=== PATIENT | male | born 1950 | race Caucasian/White ===

== ENCOUNTER 2017-09-07 14:20 | Outpatient (CLI) | payer MEDICARE ==
[~2017-09-07 14:20] MED LIST: CARV12.52 PO; PREG100C PO; SERT25TA PO; SIMV40TA5 PO; TEST1.25 TD
== END 2017-09-07 23:59 | disposition home or self-care (01) ==
LOC: WOU 14:20
PROVIDERS: ATTEND Surgery
DX: L02.212 Cutaneous abscess of back [any part, except buttock and flank] (principal); Z86.14 Personal history of Methicillin resistant Staphylococcus aureus infection; Z95.2 Presence of prosthetic heart valve; Z86.73 Personal history of transient ischemic attack (TIA), and cerebral infarction without residual deficits; Z79.899 Other long term (current) drug therapy; I10 Essential (primary) hypertension
CPT/HCPCS: 87070-TC; 87075-TC; A6209; A6402; G0463

== ENCOUNTER 2018-05-20 13:20 | Outpatient (CLI) | payer MEDICARE | END 2018-05-20 23:59 | disposition home or self-care (01) | LOC: WOU 13:20 | PROVIDERS: ATTEND Surgery | DX: T81.31XA Disruption of external operation (surgical) wound, not elsewhere classified, initial encounter (principal); L02.212 Cutaneous abscess of back [any part, except buttock and flank]; I25.10 Atherosclerotic heart disease of native coronary artery without angina pectoris; Z95.1 Presence of aortocoronary bypass graft; I10 Essential (primary) hypertension; E66.9 Obesity, unspecified; Z68.27 Body mass index [BMI] 27.0-27.9, adult | CPT/HCPCS: 11043; A6407 ==

== ENCOUNTER 2018-05-31 12:50 | Outpatient (CLI) | payer MEDICARE | END 2018-05-31 23:59 | disposition home health service (06) | LOC: WOU 12:50 | PROVIDERS: ATTEND Surgery | DX: T81.31XA Disruption of external operation (surgical) wound, not elsewhere classified, initial encounter (principal); L02.212 Cutaneous abscess of back [any part, except buttock and flank]; L90.5 Scar conditions and fibrosis of skin; I10 Essential (primary) hypertension; I25.10 Atherosclerotic heart disease of native coronary artery without angina pectoris; Z95.1 Presence of aortocoronary bypass graft; E66.9 Obesity, unspecified; E46 Unspecified protein-calorie malnutrition; Z68.27 Body mass index [BMI] 27.0-27.9, adult | CPT/HCPCS: 11043; 87070; 87075; A6402; A6407; J3490; A6209 ==

== ENCOUNTER 2018-06-07 12:45 | Outpatient (CLI) | payer MEDICARE | END 2018-06-07 23:59 | disposition home health service (06) | LOC: WOU 12:45 | PROVIDERS: ATTEND Surgery | DX: T81.31XA Disruption of external operation (surgical) wound, not elsewhere classified, initial encounter (principal); L02.212 Cutaneous abscess of back [any part, except buttock and flank]; L90.5 Scar conditions and fibrosis of skin; I10 Essential (primary) hypertension; I25.10 Atherosclerotic heart disease of native coronary artery without angina pectoris; E46 Unspecified protein-calorie malnutrition; E66.9 Obesity, unspecified; Z68.27 Body mass index [BMI] 27.0-27.9, adult; Z95.1 Presence of aortocoronary bypass graft | CPT/HCPCS: 11043; A6402; A6407 ==

== ENCOUNTER 2018-06-14 13:00 | Outpatient (CLI) | payer MEDICARE | END 2018-06-14 23:59 | disposition home or self-care (01) | LOC: WOU 13:00 | PROVIDERS: ATTEND Surgery | DX: T81.31XA Disruption of external operation (surgical) wound, not elsewhere classified, initial encounter (principal); L02.212 Cutaneous abscess of back [any part, except buttock and flank]; L90.5 Scar conditions and fibrosis of skin; I10 Essential (primary) hypertension; I25.10 Atherosclerotic heart disease of native coronary artery without angina pectoris; E46 Unspecified protein-calorie malnutrition; E66.9 Obesity, unspecified; Z68.27 Body mass index [BMI] 27.0-27.9, adult; Z95.1 Presence of aortocoronary bypass graft | CPT/HCPCS: 11043; A6402; A6407 ==

== ENCOUNTER 2018-06-21 12:45 | Outpatient (CLI) | payer MEDICARE | END 2018-06-21 23:59 | disposition home or self-care (01) | LOC: WOU 12:45 | PROVIDERS: ATTEND Surgery | DX: T81.31XA Disruption of external operation (surgical) wound, not elsewhere classified, initial encounter (principal); L02.212 Cutaneous abscess of back [any part, except buttock and flank]; L90.5 Scar conditions and fibrosis of skin; I10 Essential (primary) hypertension; I25.10 Atherosclerotic heart disease of native coronary artery without angina pectoris; E66.9 Obesity, unspecified; Z68.27 Body mass index [BMI] 27.0-27.9, adult; Z98.890 Other specified postprocedural states | CPT/HCPCS: 11042; 11043; A6402 ×2; A6407 ==

== ENCOUNTER 2018-06-28 12:50 | Outpatient (CLI) | payer MEDICARE | END 2018-06-28 23:59 | disposition home or self-care (01) | LOC: WOU 12:50 | PROVIDERS: ATTEND Surgery | DX: T81.31XA Disruption of external operation (surgical) wound, not elsewhere classified, initial encounter (principal); L02.212 Cutaneous abscess of back [any part, except buttock and flank]; I10 Essential (primary) hypertension; I25.10 Atherosclerotic heart disease of native coronary artery without angina pectoris; E46 Unspecified protein-calorie malnutrition; E66.9 Obesity, unspecified; Z68.27 Body mass index [BMI] 27.0-27.9, adult; Z79.899 Other long term (current) drug therapy | CPT/HCPCS: 11042; 11043; A6402 ×2; A6407 ×2 ==

== ENCOUNTER 2018-07-05 12:55 | Outpatient (CLI) | payer MEDICARE | END 2018-07-05 23:59 | disposition home health service (06) | LOC: WOU 12:55 | PROVIDERS: ATTEND Surgery | DX: T81.31XA Disruption of external operation (surgical) wound, not elsewhere classified, initial encounter (principal); L02.212 Cutaneous abscess of back [any part, except buttock and flank]; I10 Essential (primary) hypertension; I25.10 Atherosclerotic heart disease of native coronary artery without angina pectoris; E46 Unspecified protein-calorie malnutrition; E66.9 Obesity, unspecified; Z68.27 Body mass index [BMI] 27.0-27.9, adult; L90.5 Scar conditions and fibrosis of skin; Z79.899 Other long term (current) drug therapy | CPT/HCPCS: 11043; A6402; J3490 ==

== ENCOUNTER 2018-07-08 13:30 | Outpatient (CLI) | payer MEDICARE | END 2018-07-08 23:59 | disposition home or self-care (01) | LOC: WOU 13:30 | PROVIDERS: ATTEND Surgery | DX: T81.31XA Disruption of external operation (surgical) wound, not elsewhere classified, initial encounter (principal); T81.41XA Infection following a procedure, superficial incisional surgical site, initial encounter; L02.212 Cutaneous abscess of back [any part, except buttock and flank]; L90.5 Scar conditions and fibrosis of skin; T81.42XA Infection following a procedure, deep incisional surgical site, initial encounter; Z86.73 Personal history of transient ischemic attack (TIA), and cerebral infarction without residual deficits; Z87.440 Personal history of urinary (tract) infections; I25.10 Atherosclerotic heart disease of native coronary artery without angina pectoris; I10 Essential (primary) hypertension; Z95.1 Presence of aortocoronary bypass graft; Z87.442 Personal history of urinary calculi; Z79.899 Other long term (current) drug therapy; E66.9 Obesity, unspecified; Z68.27 Body mass index [BMI] 27.0-27.9, adult; E46 Unspecified protein-calorie malnutrition | CPT/HCPCS: 11043; 11046; 87070; 87077; 87186; A6402 ==

== ENCOUNTER 2018-07-12 12:50 | Outpatient (CLI) | payer MEDICARE | END 2018-07-12 23:59 | disposition home health service (06) | LOC: WOU 12:50 | PROVIDERS: ATTEND Surgery | DX: T81.31XA Disruption of external operation (surgical) wound, not elsewhere classified, initial encounter (principal); L90.5 Scar conditions and fibrosis of skin; I10 Essential (primary) hypertension; I25.10 Atherosclerotic heart disease of native coronary artery without angina pectoris; E66.9 Obesity, unspecified; Z68.27 Body mass index [BMI] 27.0-27.9, adult; E46 Unspecified protein-calorie malnutrition; Z79.891 Long term (current) use of opiate analgesic; Z79.899 Other long term (current) drug therapy | CPT/HCPCS: 11043; 11046; 97605; A6402 ×2 ==

== ENCOUNTER 2018-07-19 12:45 | Outpatient (CLI) | payer MEDICARE | END 2018-07-19 23:59 | disposition home health service (06) | LOC: WOU 12:45 | PROVIDERS: ATTEND Surgery | DX: T81.31XA Disruption of external operation (surgical) wound, not elsewhere classified, initial encounter (principal); L90.5 Scar conditions and fibrosis of skin; I25.10 Atherosclerotic heart disease of native coronary artery without angina pectoris; I10 Essential (primary) hypertension; E66.9 Obesity, unspecified; Z68.27 Body mass index [BMI] 27.0-27.9, adult; E46 Unspecified protein-calorie malnutrition; Z79.891 Long term (current) use of opiate analgesic; Z79.899 Other long term (current) drug therapy | CPT/HCPCS: 11043; 11046; 97605; A6253; A6402 ==

== ENCOUNTER 2018-08-02 13:00 | Outpatient (CLI) | payer MEDICARE | END 2018-08-02 23:59 | disposition home health service (06) | LOC: WOU 13:00 | PROVIDERS: ATTEND Surgery | DX: T81.31XD Disruption of external operation (surgical) wound, not elsewhere classified, subsequent encounter (principal); L90.5 Scar conditions and fibrosis of skin; I25.10 Atherosclerotic heart disease of native coronary artery without angina pectoris; I10 Essential (primary) hypertension; E66.9 Obesity, unspecified; Z68.27 Body mass index [BMI] 27.0-27.9, adult; E46 Unspecified protein-calorie malnutrition; Z79.891 Long term (current) use of opiate analgesic; Z79.899 Other long term (current) drug therapy | CPT/HCPCS: A6209; A6402; G0463 ==

== ENCOUNTER 2018-08-09 13:00 | Outpatient (CLI) | payer MEDICARE | END 2018-08-09 23:59 | disposition home health service (06) | LOC: WOU 13:00 | PROVIDERS: ATTEND Surgery | DX: T81.31XD Disruption of external operation (surgical) wound, not elsewhere classified, subsequent encounter (principal); L90.5 Scar conditions and fibrosis of skin; I10 Essential (primary) hypertension; I25.10 Atherosclerotic heart disease of native coronary artery without angina pectoris; Z95.1 Presence of aortocoronary bypass graft; E66.9 Obesity, unspecified; E46 Unspecified protein-calorie malnutrition; Z68.27 Body mass index [BMI] 27.0-27.9, adult; Z79.899 Other long term (current) drug therapy | CPT/HCPCS: A6402; G0463 ==

== ENCOUNTER 2018-08-16 13:15 | Outpatient (CLI) | payer MEDICARE | END 2018-08-16 23:59 | disposition home health service (06) | LOC: WOU 13:15 | PROVIDERS: ATTEND Surgery | DX: T81.31XD Disruption of external operation (surgical) wound, not elsewhere classified, subsequent encounter (principal); L90.5 Scar conditions and fibrosis of skin; I25.10 Atherosclerotic heart disease of native coronary artery without angina pectoris; I10 Essential (primary) hypertension; E66.9 Obesity, unspecified; Z68.27 Body mass index [BMI] 27.0-27.9, adult; E46 Unspecified protein-calorie malnutrition; Z79.899 Other long term (current) drug therapy | CPT/HCPCS: A6209; A6402; G0463 ==

== ENCOUNTER 2018-08-19 13:00 | Outpatient (CLI) | payer MEDICARE | END 2018-08-19 23:59 | disposition home health service (06) | LOC: WOU 13:00 | PROVIDERS: ATTEND Surgery | DX: T81.31XD Disruption of external operation (surgical) wound, not elsewhere classified, subsequent encounter (principal); L90.5 Scar conditions and fibrosis of skin; I25.10 Atherosclerotic heart disease of native coronary artery without angina pectoris; Z95.1 Presence of aortocoronary bypass graft; I10 Essential (primary) hypertension; Z86.73 Personal history of transient ischemic attack (TIA), and cerebral infarction without residual deficits; Z95.2 Presence of prosthetic heart valve; E66.9 Obesity, unspecified; Z68.27 Body mass index [BMI] 27.0-27.9, adult; E46 Unspecified protein-calorie malnutrition | CPT/HCPCS: 11042; A6209; A6402 ==

== ENCOUNTER 2018-08-23 12:55 | Outpatient (CLI) | payer MEDICARE | END 2018-08-23 23:59 | disposition home health service (06) | LOC: WOU 12:55 | PROVIDERS: ATTEND Surgery | DX: T81.31XA Disruption of external operation (surgical) wound, not elsewhere classified, initial encounter (principal); L90.5 Scar conditions and fibrosis of skin; I25.10 Atherosclerotic heart disease of native coronary artery without angina pectoris; Z95.1 Presence of aortocoronary bypass graft; I10 Essential (primary) hypertension; E66.9 Obesity, unspecified; Z68.27 Body mass index [BMI] 27.0-27.9, adult; E46 Unspecified protein-calorie malnutrition; Z95.2 Presence of prosthetic heart valve; Z79.899 Other long term (current) drug therapy | CPT/HCPCS: 10160; 87070; 87075; A6209; A6402; J3490 ==

== ENCOUNTER 2018-08-26 11:00 | Outpatient (CLI) | payer MEDICARE | END 2018-08-26 23:59 | disposition home health service (06) | LOC: WOU 11:00 | PROVIDERS: ATTEND Surgery | DX: T81.31XD Disruption of external operation (surgical) wound, not elsewhere classified, subsequent encounter (principal); L76.34 Postprocedural seroma of skin and subcutaneous tissue following other procedure; L90.5 Scar conditions and fibrosis of skin; R53.1 Weakness; E46 Unspecified protein-calorie malnutrition; Z68.27 Body mass index [BMI] 27.0-27.9, adult; E66.9 Obesity, unspecified; Z86.73 Personal history of transient ischemic attack (TIA), and cerebral infarction without residual deficits; I10 Essential (primary) hypertension; I25.10 Atherosclerotic heart disease of native coronary artery without angina pectoris; Z95.1 Presence of aortocoronary bypass graft | CPT/HCPCS: 10140; G0463 ==

== ENCOUNTER 2018-08-30 13:00 | Outpatient (CLI) | payer MEDICARE | END 2018-08-30 23:59 | disposition home health service (06) | LOC: WOU 13:00 | PROVIDERS: ATTEND Surgery | DX: L76.34 Postprocedural seroma of skin and subcutaneous tissue following other procedure (principal); T81.31XA Disruption of external operation (surgical) wound, not elsewhere classified, initial encounter; L90.5 Scar conditions and fibrosis of skin; I25.10 Atherosclerotic heart disease of native coronary artery without angina pectoris; I10 Essential (primary) hypertension; Z95.1 Presence of aortocoronary bypass graft; E66.9 Obesity, unspecified; Z68.27 Body mass index [BMI] 27.0-27.9, adult; E46 Unspecified protein-calorie malnutrition; Z79.899 Other long term (current) drug therapy | CPT/HCPCS: 10160; A6209; A6402; 10140 ==

== ENCOUNTER 2018-09-06 12:40 | Outpatient (CLI) | payer MEDICARE | END 2018-09-06 23:59 | disposition home health service (06) | LOC: WOU 12:40 | PROVIDERS: ATTEND Surgery | DX: T81.31XD Disruption of external operation (surgical) wound, not elsewhere classified, subsequent encounter (principal); I25.10 Atherosclerotic heart disease of native coronary artery without angina pectoris; Z98.61 Coronary angioplasty status; I10 Essential (primary) hypertension; E66.9 Obesity, unspecified; Z68.27 Body mass index [BMI] 27.0-27.9, adult; E46 Unspecified protein-calorie malnutrition; Z79.899 Other long term (current) drug therapy | CPT/HCPCS: A6209; A6402; G0463 ==

== ENCOUNTER 2018-09-13 13:00 | Outpatient (CLI) | payer MEDICARE | END 2018-09-13 23:59 | disposition home health service (06) | LOC: WOU 13:00 | PROVIDERS: ATTEND Surgery | DX: T81.31XD Disruption of external operation (surgical) wound, not elsewhere classified, subsequent encounter (principal); L90.5 Scar conditions and fibrosis of skin; I10 Essential (primary) hypertension; I25.10 Atherosclerotic heart disease of native coronary artery without angina pectoris; Z98.61 Coronary angioplasty status; E66.9 Obesity, unspecified; Z68.27 Body mass index [BMI] 27.0-27.9, adult; E46 Unspecified protein-calorie malnutrition; Z79.899 Other long term (current) drug therapy | CPT/HCPCS: A6209; A6402; G0463 ==

== ENCOUNTER 2018-09-23 12:45 | Outpatient (CLI) | payer MEDICARE | END 2018-09-23 23:59 | disposition home health service (06) | LOC: WOU 12:45 | PROVIDERS: ATTEND Surgery | DX: T81.31XD Disruption of external operation (surgical) wound, not elsewhere classified, subsequent encounter (principal); I25.10 Atherosclerotic heart disease of native coronary artery without angina pectoris; Z95.1 Presence of aortocoronary bypass graft; I10 Essential (primary) hypertension; Z86.73 Personal history of transient ischemic attack (TIA), and cerebral infarction without residual deficits; Z79.899 Other long term (current) drug therapy; R07.89 Other chest pain; E66.9 Obesity, unspecified; Z68.27 Body mass index [BMI] 27.0-27.9, adult; E46 Unspecified protein-calorie malnutrition | CPT/HCPCS: A6402; G0463 ==

== ENCOUNTER 2018-11-01 13:00 | Outpatient (CLI) | payer MEDICARE | END 2018-11-01 23:59 | disposition home health service (06) | LOC: WOU 13:00 | PROVIDERS: ATTEND Surgery | DX: L90.5 Scar conditions and fibrosis of skin (principal); T81.31XS Disruption of external operation (surgical) wound, not elsewhere classified, sequela; I10 Essential (primary) hypertension; I25.10 Atherosclerotic heart disease of native coronary artery without angina pectoris; E66.9 Obesity, unspecified; Z68.27 Body mass index [BMI] 27.0-27.9, adult; E46 Unspecified protein-calorie malnutrition; Z79.899 Other long term (current) drug therapy | CPT/HCPCS: 11042; G0463 ==

== ENCOUNTER 2019-01-03 13:15 | Outpatient (CLI) | payer MEDICARE | END 2019-01-03 23:59 | disposition home or self-care (01) | LOC: WOU 13:15 | PROVIDERS: ATTEND Surgery | DX: L72.3 Sebaceous cyst (principal); L90.5 Scar conditions and fibrosis of skin; I10 Essential (primary) hypertension; I25.10 Atherosclerotic heart disease of native coronary artery without angina pectoris; E66.9 Obesity, unspecified; Z68.27 Body mass index [BMI] 27.0-27.9, adult; E46 Unspecified protein-calorie malnutrition | CPT/HCPCS: G0463 ==

== ENCOUNTER 2022-04-05 19:25 | Emergency (ER) | payer MEDICARE ==
[~2022-04-05] VITALS: Ht 177.8 cm; Wt 98.4 kg
[~2022-04-05 19:25] MED LIST changes: +SIMV-49 PO; -SIMV40TA5 PO
--- NOTE | 2022-04-05 21:26 | NUR ---
URINE SENT TO LAB
--- NOTE | 2022-04-05 22:00 | NUR ---
DRAIN CLEANER PLUMBER AT BEDSIDE
[2022-04-05 22:03] LABS: COLOR,URINE BROWN (YELLOW)
[2022-04-05 22:13] LABS: BACTERIA,URINE 1+ /HPF (None Seen); RBC,URINE 51-80 /HPF (0-2); SQUAMOUS EPITHELIAL CELL,UR 0-2 /HPF (None Seen)
[2022-04-05 22:19] LABS: BASOPHILS % (AUTO) 0.3 % (0.0-2.0); EOSINOPHILS % (AUTO) 2.1 % (0.0-6.0); HEMATOCRIT 46 % (39-51); HEMOGLOBIN 15.5 g/dL (13.5-17.5); LYMPHOCYTES # (AUTO) 2.8 K/uL (0.8-4.8); LYMPHOCYTES % (AUTO) 24.2 % (20.0-44.0); MEAN CORPUSCULAR HGB CONC 33 g/dl (31.0-36.0); MEAN CORPUSCULAR VOLUME 89 fL (80-96); MONOCYTES # (AUTO) 1.2 K/uL (0.1-1.30); MONOCYTES % (AUTO) 10.7 % (2.0-12.0); NEUTROPHILS # (AUTO) 7.1 K/uL (1.8-8.9); NEUTROPHILS % (AUTO) 62.7 % (43.0-81.0); PLATELET COUNT (AUTO) 152 K/uL (150-450); RED BLOOD CELL COUNT(AUTO) 5.19 MIL/uL (4.5-6.0); WHITE BLOOD COUNT (AUTO) 11.4 K/uL (4.3-11.0)
[2022-04-05] MEDS ORDERED: CEFTRIAXONE 1GM BAG (ER ONLY) 1 GM/50 ML PIGGYBACK IV ONE (22:30)
[2022-04-05] MEDS ORDERED: CEFTRIAXONE 1GM BAG (ER ONLY) 50 ML IV ONE (22:45)
--- NOTE | 2022-04-05 22:59 | NUR ---
IV LINE ESTABLISHED, LWRIST 20G
[2022-04-05 23:34] LABS: CARBON DIOXIDE 23 mmol/L (21-32); CHLORIDE 107 mmol/L (98-107); CREATININE 1.8 mg/dL (0.6-1.3); GLUCOSE 100 mg/dL (74-106); POTASSIUM 4.9 mmol/L (3.5-5.1); SODIUM SERUM 138 mmol/L (136-145); UREA NITROGEN, BLOOD 32 mg/dL (7-18)
[2022-04-05 23:36] LABS: ALBUMIN 3.9 g/dL (3.4-5.0); BILIRUBIN,DIRECT 0.2 mg/dL (0.0-0.2); BILIRUBIN,TOTAL 0.8 mg/dL (0.2-1.0); TOTAL PROTEIN, SERUM 7.9 g/dL (6.4-8.2)
[2022-04-05] MEDS ORDERED: CEPH500C2 PO (23:50)
--- NOTE | 2022-04-05 23:58 | NUR ---
IV removed. Catheter intact and site benign. Pressure and 4x4 applied to site. No bleeding noted.
--- NOTE | 2022-04-05 23:58 | NUR ---
Patient discharged to home in stable condition. Written and verbal after care instructions given. Patient verbalizes understanding of instruction.
[2022-04-06 00:04] VITALS: BP 138/68
== END 2022-04-06 00:05 | disposition home or self-care (01) ==
LOC: ER 19:27
DX: N39.0 Urinary tract infection, site not specified (principal); I10 Essential (primary) hypertension; E86.0 Dehydration; R31.9 Hematuria, unspecified; Z85.9 Personal history of malignant neoplasm, unspecified; Z95.1 Presence of aortocoronary bypass graft; E66.9 Obesity, unspecified; Z68.31 Body mass index [BMI] 31.0-31.9, adult
CPT/HCPCS: 99284; 96365; 85025; 80048; 80076; 81001; 36415; J0696